=== PATIENT | female | born 1985 | race Caucasian/White ===

== ENCOUNTER 2017-05-12 06:53 | Inpatient (IN) | payer OTHER ==
[~2017-05-12] VITALS: Ht 170.2 cm; Wt 160.6 kg
[~2017-05-12 06:53] MED LIST: COLACE 100MG C100 MG PO; IBUPROFEN600 MG PO; NORCO 10-325 T1 EACH PO
[2017-05-13 04:23] LABS: HEMOGLOBIN 10.6 gm/dl (12.3-15.3)
== END 2017-05-14 07:50 | disposition home or self-care (01) | DRG 765 ==
LOC: OB 06:53
PROVIDERS: ADMIT Obstetrics & Gynecology
PROC: 3E0R3CZ (ICD-10-PCS; 2017-05-12)
PROC: 3E0234Z Introduction of Serum, Toxoid and Vaccine into Muscle, Percutaneous Approach (ICD-10-PCS; 2017-05-12)
PROC: 10D00Z1 Extraction of Products of Conception, Low, Open Approach (ICD-10-PCS; principal; 2017-05-12 09:15)
PROC: 3E0R3GC Introduction of Other Therapeutic Substance into Spinal Canal, Percutaneous Approach (ICD-10-PCS; 2017-05-14)
DX: O34.211 Maternal care for low transverse scar from previous cesarean delivery (principal); O10.92 Unspecified pre-existing hypertension complicating childbirth; Z68.43 Body mass index [BMI] 50.0-59.9, adult; N85.8 Other specified noninflammatory disorders of uterus; O89.4 Spinal and epidural anesthesia-induced headache during the puerperium; O99.214 Obesity complicating childbirth; E66.01 Morbid (severe) obesity due to excess calories; O36.63X0 Maternal care for excessive fetal growth, third trimester, not applicable or unspecified; O09.293 Supervision of pregnancy with other poor reproductive or obstetric history, third trimester; Z3A.37 37 weeks gestation of pregnancy; Z37.0 Single live birth; Z23 Encounter for immunization; Z87.442 Personal history of urinary calculi; Z79.899 Other long term (current) drug therapy
CPT/HCPCS: 36415; 81001; 82800; 85014; 85018; 85025; 90715; C9113; J0690; J1200; J1885; J2274; J2405; J2590; J2765; J3010; J7040; J7120

== ENCOUNTER → 2021-04-29 | Outpatient (CLI) | payer BC ==
[2021-04-30 12:12] LABS: RHEUMATOID ARTHRITIS FACTOR <10.0 IU/mL (0.0-13.9)
[2021-05-02 00:07] LABS: CCP ANTIBODIES IGG/IGA 5 units (0-19)
== END ==
LOC: RAD 14:21 → LAB 14:21
PROVIDERS: Internal Medicine
DX: M25.50 Pain in unspecified joint (principal)
CPT/HCPCS: 82728; 83520; 85652; 86140; 86200; 86431